=== PATIENT | male | born 1990 | race Caucasian/White ===

== ENCOUNTER 2016-05-17 09:54 | Emergency (ER) | payer OTHER ==
[2016-05-17] MEDS ORDERED: AZITHROMYCIN 250 MG TAB As Ordered ONE (10:40)
--- NOTE | 2016-05-17 10:46 | EDDOCDS ---
Nurse's Notes [facility] Name: Juan Guajardo Age: 25 yrs Sex: Male : 1990 Arrival Date: 05/17/2016 Time: 09:54 Bed Triage 2 Private MD: SANDER GARCIA Diagnosis: Acute sinusitis Presentation: 05/17 10:01 Presenting complaint: Patient states: returned fro [place] 3 days ago now having kpj cough fever nasal congestion headache neck ache eyes and ears are sore [place] medicine. Adult Sepsis Screening: The patient does not have new or worsening altered mentation. Patient's respiratory rate is less than 22. Systolic blood pressure is greater than 100. Patient has a qSOFA score of 0- Negative Sepsis Screen. Suicide/Homicide risk assessment- the patient denies having any suicidal and/or homicidal ideations and does not present with any other emotional, behavioral or mental health complaints. 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 Transition of care: patient was not received from another setting of care. 10:01 Acuity: ELIO Level 4 [facility] 10:01 Method Of Arrival: Walkin/Carried/Asstd [facility] Triage Assessment: 10:06 General: Appears well nourished, well groomed, Behavior is appropriate for age. Pain: [facility] Location: back of neck and headache Pain currently is 1 out of 10 on a pain scale. HIV screening NA for this visit Offered previously. Neurological: Level of Consciousness is awake, alert, Oriented to person, place, time. EENT: Reports nasal congestion. Respiratory: Onset: The symptoms/episode began/occurred 3 days ago, Airway is patent Respiratory effort is even, unlabored, Respiratory pattern is regular, symmetrical, Reports cough that is productive, thick green phlegm. Derm: Skin is pink, warm & dry. Historical: - Allergies: PENICILLINS (aggravates psoriasis); - Home Meds: 1. benzonatate 100 mg oral cap 1 cap 3 times per day (Last dose: 05/16/2016) 2. albuterol sulfate 90 mcg/actuation Inhl HFAA 2 puffs every 4 hours as needed (Last dose: 05/16/2016) 3. Mucinex 600 mg oral Ta12 1 tab every 12 hours (Last dose: 05/16/2016) - PMHx: Psoriasis; - PSHx: none; - Social history: Smoking status: Patient uses tobacco products, light tobacco smoker. No barriers to communication noted, The patient speaks fluent Romanian. - Family history: Not pertinent. - : The pt / caregiver states he / she is not on anticoagulants. Home medication list is obtained from the patient. - Exposure Risk Screening:: None identified. Screenin:44 Screening information is obtained from the patient. Fall risk: No risks identified. srm Assistance ADL's: requires no assistance with activities of daily living. Abuse/DV Screen: The patient / caregiver reports he/she is: not in a situation that causes fear, pain or injury. Nutritional screening: No deficits noted. Advance Directives: There is no active DNR order. home support is adequate. Assessment: 10:44 General: Appears in no apparent distress, Behavior is appropriate for age, cooperative. srm Cardiovascular: Capillary refill in bilateral fingers. Respiratory: Airway is patent Respiratory effort is even, unlabored, loose congested cough. Vital Signs: 09:56 BP 116 / 73; Pulse 87; Resp 18; Temp 97.(O); Pulse Ox 98% on R/A; Weight 72.57 kg (R); lr2 Height 5 ft. 6 in. (167.64 cm) (R); Pain 2/10; 09:56 Body Mass Index 25.82 (72.57 kg, 167.64 cm) lr2 Vitals: 09:56 Log In Time: May 17, 2016 at 09:53. lr2 10:28 Strep Screen is obtained and tested: Negative, a GATSNEG culture is ordered in [facility] and sent. ED Course: 09:55 Patient visited by Bri Han. lr2 09:55 Patient moved to Waiting lr2 09:56 [facility] is Private Physician. lr2 09:58 Patient moved to Pre RCE lr2 10:01 [facility] ef1 10:01 Jennifer Ignacio MD is Attending Physician. ef1 10:04 Triage Initiated [facility] 10:08 Patient moved to Triage 2 kp 10:10 Patient visited by Bruna Stacy PA-C. ef1 10:20 Patient name changed from Juan\S\\S\Bennett\S\ to Juan\S\Lucien\S\Bennett. EDMS 10:21 [facility] Payment Agreement was scanned into [employer] and attached to record. lg 10:31 GATS (NEGATIVE STREP SCREEN) Sent. srm 10:34 [facility]. ef1 10:44 The patient / caregiver is instructed regarding the plan of care and ED course. Patient srm has correct armband on for positive identification. 10:44 No IV's were initiated during this patient's visit. No procedures done that require srm assistance. Administered Medications: 10:44 Drug: azithromycin 500 mg [azithromycin 250 mg tablet (2 tabs)] Route: PO; srm Order Results: There are currently no results for this order. Outcome: 10:34 Discharge ordered by Provider. ef1 10:44 Discharge Assessment: Patient awake, alert and oriented x 3. No cognitive and/or srm functional deficits noted. Patient verbalized understanding of disposition instructions. patient administered narcotics - no. The following High Risk Discharge criteria are identified: None. Discharged to home ambulatory. Condition: good Condition: stable. Discharge instructions given to patient, Instructed on discharge instructions, follow up and referral plans. medication usage, Demonstrated understanding of instructions, medications, Pt was receptive of discharge instructions/ teaching. Prescriptions given X 4. No special radiology studies were completed. Property sent home with patient. 10:45 Patient left the ED. [facility] Signatures: Dispatcher [employer] EDMO Luz Marina Austin RN RN kpj Michelson, Staci, RN RN srm Ganter, LoriLee, Ruben Reg Bruna Storey, MELISSA TORRES ef1 Bri Han2 MTDD
--- NOTE | 2016-05-17 10:46 | EDDOCDS ---
Physician Documentation [facility] Name: Juan Guajardo Age: 25 yrs Sex: Male : 1990 Arrival Date: 05/17/2016 Time: 09:54 Bed Triage 2 Private MD: SANDER GARCIA Disposition: 05/17/16 10:34 Discharged to Home/Self Care. Impression: Acute sinusitis. - Condition is Stable. - Discharge Instructions: Sinusitis, [id number]. - Prescriptions for Ibuprofen 800 mg Oral Tablet - take 1 tablet by ORAL route every 8 hours As needed take with food; 30 tablet. Claritin 10 mg Oral Tablet - take 1 tablet by ORAL route once daily As needed; 30 tablet. Zithromax 250 mg Oral Tablet - take 1 tablet by ORAL route once daily start tomorrow; 4 tablet. Mucinex 600 mg - take 1 tablet by ORAL route 2 times per day; 30 tablet. - Medication Reconciliation, Local Pharmacy Hours form. - Follow up: [facility]; When: 1 - 2 days; Reason: Recheck today's complaints, Continuance of care. Follow up: Emergency Department; Reason: Worsening of conditions. - Problem is new. - Symptoms have improved. Historical: - Allergies: PENICILLINS (aggravates psoriasis); - Home Meds: 1. benzonatate 100 mg oral cap 1 cap 3 times per day (Last dose: 05/16/2016) 2. albuterol sulfate 90 mcg/actuation Inhl HFAA 2 puffs every 4 hours as needed (Last dose: 05/16/2016) 3. Mucinex 600 mg oral Ta12 1 tab every 12 hours (Last dose: 05/16/2016) - PMHx: Psoriasis; - PSHx: none; - Social history: Smoking status: Patient uses tobacco products, light tobacco smoker. No barriers to communication noted, The patient speaks fluent Portuguese. - Family history: Not pertinent. - : The pt / caregiver states he / she is not on anticoagulants. Home medication list is obtained from the patient. - Exposure Risk Screening:: None identified. Vital Signs: 05/17 09:56 BP 116 / 73; Pulse 87; Resp 18; Temp 97.(O); Pulse Ox 98% on R/A; Weight 72.57 kg / lr2 159.99 lbs (R); Height 5 ft. 6 in. (167.64 cm) (R); Pain 05/23; 09:56 Body Mass Index 25.82 (72.57 kg, 167.64 cm) lr2 MDM: 10:14 Financial registration complete. lg 10:17 Strep Screen, Nursing ordered. ef1 10:21 [facility] Payment Agreement was scanned into [employer] and attached to record. lg 10:29 GATS (NEGATIVE STREP SCREEN) Ordered. EDMS 10:31 azithromycin 500 mg PO once ordered. ef1 Administered Medications: 10:44 Drug: azithromycin 500 mg [azithromycin 250 mg tablet (2 tabs)] Route: PO; srm Signatures: Dispatcher [employer] EDMS Luz Marina Austin RN RN kpj Michelson, Staci, RN RN Jacinda Tyson Reg Reg lg Feola, Erica, ERASMO-Roldan PA-Roldan ef1 The chart was reviewed and I authenticate all verbal orders and agree with the evaluation and treatment provided.Attachments: 10:21 [facility] Payment Agreement lg MTDD
--- NOTE | 2016-05-19 11:46 | EDDOCDS ---
Physician Documentation [facility] Name: Juan Guajardo Age: 25 yrs Sex: Male : 1990 Arrival Date: 05/17/2016 Time: 09:54 Bed Triage 2 Private MD: SANDER GARCIA Disposition: 05/17/16 10:34 Discharged to Home/Self Care. Impression: Acute sinusitis. - Condition is Stable. - Discharge Instructions: Sinusitis, [id number]. - Prescriptions for Ibuprofen 800 mg Oral Tablet - take 1 tablet by ORAL route every 8 hours As needed take with food; 30 tablet. Claritin 10 mg Oral Tablet - take 1 tablet by ORAL route once daily As needed; 30 tablet. Zithromax 250 mg Oral Tablet - take 1 tablet by ORAL route once daily start tomorrow; 4 tablet. Mucinex 600 mg - take 1 tablet by ORAL route 2 times per day; 30 tablet. - Medication Reconciliation, Local Pharmacy Hours form. - Follow up: [facility]; When: 1 - 2 days; Reason: Recheck today's complaints, Continuance of care. Follow up: Emergency Department; Reason: Worsening of conditions. - Problem is new. - Symptoms have improved. Historical: - Allergies: PENICILLINS (aggravates psoriasis); - Home Meds: 1. benzonatate 100 mg oral cap 1 cap 3 times per day (Last dose: 05/16/2016) 2. albuterol sulfate 90 mcg/actuation Inhl HFAA 2 puffs every 4 hours as needed (Last dose: 05/16/2016) 3. Mucinex 600 mg oral Ta12 1 tab every 12 hours (Last dose: 05/16/2016) - PMHx: Psoriasis; - PSHx: none; - Social history: Smoking status: Patient uses tobacco products, light tobacco smoker. No barriers to communication noted, The patient speaks fluent Irish. - Family history: Not pertinent. - : The pt / caregiver states he / she is not on anticoagulants. Home medication list is obtained from the patient. - Exposure Risk Screening:: None identified. Vital Signs: 05/17 09:56 BP 116 / 73; Pulse 87; Resp 18; Temp 97.(O); Pulse Ox 98% on R/A; Weight 72.57 kg / lr2 159.99 lbs (R); Height 5 ft. 6 in. (167.64 cm) (R); Pain 05/23; 09:56 Body Mass Index 25.82 (72.57 kg, 167.64 cm) lr2 MDM: 10:14 Financial registration complete. lg 10:17 Strep Screen, Nursing ordered. ef1 10:21 [facility] Payment Agreement was scanned into [employer] and attached to record. lg 10:29 GATS (NEGATIVE STREP SCREEN) Ordered. EDMS 10:31 azithromycin 500 mg PO once ordered. ef1 17:10 T-Sheet-- Draft Copy was scanned into [employer] and attached to record. klr Administered Medications: 10:44 Drug: azithromycin 500 mg [azithromycin 250 mg tablet (2 tabs)] Route: PO; srm Signatures: Dispatcher [employer] EDMS Luz Marina Austin RN RN Marlee Méndez RN RN srm Jacinda Wheeler, Ruben Reg lg Bruna Stacy, ERASMO-C PAScott efYolette Lino klr The chart was reviewed and I authenticate all verbal orders and agree with the evaluation and treatment provided.Attachments: 10:21 [facility] Payment Agreement lg 17:10 T-Sheet-- Draft Copy klr Chart Complete MTDD
--- NOTE | 2016-05-19 11:46 | EDDOCDS ---
Nurse's Notes [facility] Name: Juan Guajardo Age: 25 yrs Sex: Male : 1990 Arrival Date: 05/17/2016 Time: 09:54 Bed Triage 2 Private MD: SANDER GARCIA Diagnosis: Acute sinusitis Presentation: 05/17 10:01 Presenting complaint: Patient states: returned fro [place] 3 days ago now having kpj cough fever nasal congestion headache neck ache eyes and ears are sore [place] cough medicine. Adult Sepsis Screening: The patient does not have new or worsening altered mentation. Patient's respiratory rate is less than 22. Systolic blood pressure is greater than 100. Patient has a qSOFA score of 0- Negative Sepsis Screen. Suicide/Homicide risk assessment- the patient denies having any suicidal and/or homicidal ideations and does not present with any other emotional, behavioral or mental health complaints. 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 Transition of care: patient was not received from another setting of care. 10:01 Acuity: ELIO Level 4 [facility] 10:01 Method Of Arrival: Walkin/Carried/Asstd [facility] Triage Assessment: 10:06 General: Appears well nourished, well groomed, Behavior is appropriate for age. Pain: [facility] Location: back of neck and headache Pain currently is 1 out of 10 on a pain scale. HIV screening NA for this visit Offered previously. Neurological: Level of Consciousness is awake, alert, Oriented to person, place, time. EENT: Reports nasal congestion. Respiratory: Onset: The symptoms/episode began/occurred 3 days ago, Airway is patent Respiratory effort is even, unlabored, Respiratory pattern is regular, symmetrical, Reports cough that is productive, thick green phlegm. Derm: Skin is pink, warm & dry. Historical: - Allergies: PENICILLINS (aggravates psoriasis); - Home Meds: 1. benzonatate 100 mg oral cap 1 cap 3 times per day (Last dose: 05/16/2016) 2. albuterol sulfate 90 mcg/actuation Inhl HFAA 2 puffs every 4 hours as needed (Last dose: 05/16/2016) 3. Mucinex 600 mg oral Ta12 1 tab every 12 hours (Last dose: 05/16/2016) - PMHx: Psoriasis; - PSHx: none; - Social history: Smoking status: Patient uses tobacco products, light tobacco smoker. No barriers to communication noted, The patient speaks fluent [place]. - Family history: Not pertinent. - : The pt / caregiver states he / she is not on anticoagulants. Home medication list is obtained from the patient. - Exposure Risk Screening:: None identified. Screenin:44 Screening information is obtained from the patient. Fall risk: No risks identified. srm Assistance ADL's: requires no assistance with activities of daily living. Abuse/DV Screen: The patient / caregiver reports he/she is: not in a situation that causes fear, pain or injury. Nutritional screening: No deficits noted. Advance Directives: There is no active DNR order. home support is adequate. Assessment: 10:44 General: Appears in no apparent distress, Behavior is appropriate for age, cooperative. srm Cardiovascular: Capillary refill in bilateral fingers. Respiratory: Airway is patent Respiratory effort is even, unlabored, loose congested cough. Vital Signs: 09:56 BP 116 / 73; Pulse 87; Resp 18; Temp 97.(O); Pulse Ox 98% on R/A; Weight 72.57 kg (R); lr2 Height 5 ft. 6 in. (167.64 cm) (R); Pain 2/10; 09:56 Body Mass Index 25.82 (72.57 kg, 167.64 cm) lr2 Vitals: 09:56 Log In Time: May 17, 2016 at 09:53. lr2 10:28 Strep Screen is obtained and tested: Negative, a GATSNEG culture is ordered in [facility] and sent. ED Course: 09:55 Patient visited by Bri Han. lr2 09:55 Patient moved to Waiting lr2 09:56 [facility] is Private Physician. lr2 09:58 Patient moved to Pre RCE lr2 10:01 Bruna Stacy [facility] ef1 10:01 Jennifer Ignacio MD is Attending Physician. ef1 10:04 Triage Initiated [facility] 10:08 Patient moved to Triage 2 kp 10:10 Patient visited by Bruna Stacy PA-C. ef1 10:20 Patient name changed from Juan\S\\S\Bennett\S\ to Juan\S\Lucien\S\Bennett. EDMS 10:21 [facility] Payment Agreement was scanned into [employer] and attached to record. lg 10:31 GATS (NEGATIVE STREP SCREEN) Sent. [facility] 10:34 [facility]. ef1 10:44 The patient / caregiver is instructed regarding the plan of care and ED course. Patient srm has correct armband on for positive identification. 10:44 No IV's were initiated during this patient's visit. No procedures done that require srm assistance. 17:10 T-Sheet-- Draft Copy was scanned into [employer] and attached to record. klr Administered Medications: 10:44 Drug: azithromycin 500 mg [azithromycin 250 mg tablet (2 tabs)] Route: PO; [facility] Order Results: Lab Order: GATS (NEGATIVE STREP SCREEN); SPEC'M 05/17/16 10:20 Test: GATS CULTURE (NEG STREP SCR); Value: GATS RESULT NEGATIVE FOR STREP PYOGENES (GROUP A); Status: F Test: GATS CULTURE (NEG STREP SCR); Value: <EXTERNAL COMMENT eCWMed> FULL REPORT IN LAB NOTES (eCW and Medent).; Status: F Test: GATS CULTURE (NEG STREP SCR); Value: ORGANISM 1: STREPTOCOCCUS GROUP C; Status: F Test: GATS CULTURE (NEG STREP SCR); Value: STREPTOCOCCUS GROUP C; Status: F Test: GATS CULTURE (NEG STREP SCR); Value: QUANTITY OF GROWTH HEAVY; Status: F Outcome: 10:34 Discharge ordered by Provider. ef1 10:44 Discharge Assessment: Patient awake, alert and oriented x 3. No cognitive and/or srm functional deficits noted. Patient verbalized understanding of disposition instructions. patient administered narcotics - no. The following High Risk Discharge criteria are identified: None. Discharged to home ambulatory. Condition: good Condition: stable. Discharge instructions given to patient, Instructed on discharge instructions, follow up and referral plans. medication usage, Demonstrated understanding of instructions, medications, Pt was receptive of discharge instructions/ teaching. Prescriptions given X 4. No special radiology studies were completed. Property sent home with patient. 10:45 Patient left the ED. srm Signatures: Dispatcher [facility] Luz Marina Austin RN RN kpj Michelson, Staci, RN RN srm Ganter, LoriLee, Ruben Reg lg Bruna Stacy, PA-C PA-C ef1 Yolette Blanchard, Bri lr2 Chart Complete MTDD
--- NOTE | 2016-05-19 11:46 | EDDOCDS ---
Physician Documentation [facility] Name: Juan Guajardo Age: 25 yrs Sex: Male : 1990 Arrival Date: 05/17/2016 Time: 09:54 Bed Triage 2 Private MD: SANDER GARCIA Disposition: 05/17/16 10:34 Discharged to Home/Self Care. Impression: Acute sinusitis. - Condition is Stable. - Discharge Instructions: Sinusitis, [id number]. - Prescriptions for Ibuprofen 800 mg Oral Tablet - take 1 tablet by ORAL route every 8 hours As needed take with food; 30 tablet. Claritin 10 mg Oral Tablet - take 1 tablet by ORAL route once daily As needed; 30 tablet. Zithromax 250 mg Oral Tablet - take 1 tablet by ORAL route once daily start tomorrow; 4 tablet. Mucinex 600 mg - take 1 tablet by ORAL route 2 times per day; 30 tablet. - Medication Reconciliation, Local Pharmacy Hours form. - Follow up: [facility]; When: 1 - 2 days; Reason: Recheck today's complaints, Continuance of care. Follow up: Emergency Department; Reason: Worsening of conditions. - Problem is new. - Symptoms have improved. Historical: - Allergies: PENICILLINS (aggravates psoriasis); - Home Meds: 1. benzonatate 100 mg oral cap 1 cap 3 times per day (Last dose: 05/16/2016) 2. albuterol sulfate 90 mcg/actuation Inhl HFAA 2 puffs every 4 hours as needed (Last dose: 05/16/2016) 3. Mucinex 600 mg oral Ta12 1 tab every 12 hours (Last dose: 05/16/2016) - PMHx: Psoriasis; - PSHx: none; - Social history: Smoking status: Patient uses tobacco products, light tobacco smoker. No barriers to communication noted, The patient speaks fluent Belarusian. - Family history: Not pertinent. - : The pt / caregiver states he / she is not on anticoagulants. Home medication list is obtained from the patient. - Exposure Risk Screening:: None identified. Vital Signs: 05/17 09:56 BP 116 / 73; Pulse 87; Resp 18; Temp 97.(O); Pulse Ox 98% on R/A; Weight 72.57 kg / lr2 159.99 lbs (R); Height 5 ft. 6 in. (167.64 cm) (R); Pain 05/23; 09:56 Body Mass Index 25.82 (72.57 kg, 167.64 cm) lr2 MDM: 10:14 Financial registration complete. lg 10:17 Strep Screen, Nursing ordered. ef1 10:21 [facility] Payment Agreement was scanned into [employer] and attached to record. lg 10:29 GATS (NEGATIVE STREP SCREEN) Ordered. EDMS 10:31 azithromycin 500 mg PO once ordered. ef1 17:10 T-Sheet-- Draft Copy was scanned into [employer] and attached to record. klr Administered Medications: 10:44 Drug: azithromycin 500 mg [azithromycin 250 mg tablet (2 tabs)] Route: PO; srm Signatures: Dispatcher [employer] EDMS Luz Marina Austin RN RN Marlee Méndez RN RN srm Jacinda Wheeler, Ruben Reg lg Bruna Stacy, ERASMO-C PAScott efYolette Lino klr The chart was reviewed and I authenticate all verbal orders and agree with the evaluation and treatment provided.Attachments: 10:21 [facility] Payment Agreement lg 17:10 T-Sheet-- Draft Copy klr Chart Complete MTDD
== END 2016-05-17 10:45 | disposition home or self-care (01) ==
LOC: M ED 09:54
DX: J01.90 Acute sinusitis, unspecified (principal); R50.9 Fever, unspecified; R51 Headache; J02.8 Acute pharyngitis due to other specified organisms; R07.0 Pain in throat; L40.9 Psoriasis, unspecified; F17.200 Nicotine dependence, unspecified, uncomplicated; Z88.0 Allergy status to penicillin

== ENCOUNTER → 2017-02-25 | Outpatient (CLI) | payer OTHER ==
--- NOTE | 2017-02-25 08:38 | REP ---
MAXILLOFACIAL CT WITHOUT CONTRAST: HISTORY: Allergic rhinitis. Minimal mucosal thickening is present in the maxillary and left ethmoid sinuses. The remaining sinuses are clear. Mucosal thickening involves the ostiomeatal units. The middle and inferior nasal turbinates are partially paradoxical. There is minimal deviation of the nasal septum to the right. The cribriform plate, medial sorto of the orbits and optic canals are intact. The carotid canals form a segment of the posterolateral sorto of the sphenoid sinus. The sphenoid sinus septum inserts into the right internal carotid canal wall. IMPRESSION: Sinus mucosal thickening as described above. Signed by Matthew Luna MD 02/25/2017 09:29 [facility]
== END ==
LOC: M RAD 06:58
PROVIDERS: ATTEND Otolaryngology
DX: J30.9 Allergic rhinitis, unspecified (principal)